=== PATIENT | male | born 1995 | race African-American/Black ===

== ENCOUNTER 2020-08-26 11:06 | Inpatient (IN) | payer OTHER ==
--- OUTSIDE RECORDS SUMMARY | 2020-08-26 11:11 | XMS ---
:1995 Author Organization [facility] Care Team Providers Name Role Phone Braden Champagne MD Unavailable Unavailable Cyndie Murphy MD Unavailable Unavailable Esperanza Maharaj MD Unavailable Unavailable Adolfo Orr DO Unavailable Unavailable Vincent Fernandes MD Unavailable Unavailable Bernardino Loomis PA-C Unavailable Unavailable April Stephen MD Unavailable April Stephen MD Unavailable April Stephen MD Unavailable Re-disclosure Warning The records that you are about to access may contain information from federally- assisted alcohol or drug abuse programs. If such information is present, then the following federally mandated warning applies: This information has been disclosed to you from records protected by federal confidentiality rules (42 CFR part 2). The federal rules prohibit you from making any further disclosure of this information unless further disclosure is expressly permitted by the written consent of the person to whom it pertains or as otherwise permitted by 42 CFR part 2. A general authorization for the release of medical or other information is NOT sufficient for this purpose. The Federal rules restrict any use of the information to criminally investigate or prosecute any alcohol or drug abuse patient.The records that you are about to access may contain highly sensitive health information, the redisclosure of which is protected by Article 27-F of the [facility] Public Health law. If you continue you may haveaccess to information: Regarding HIV / AIDS; Provided by facilities licensed or operated by the [facility] Office of Mental Health; or Provided by the [facility] Office for People With Developmental Disabilities. If such information is present, then the following [facility] mandated warning applies: This information has been disclosed to you from confidential records which are protected by state law. State law prohibits you from making any further disclosure of this information without the specific written consent of the person to whom it pertains, or as otherwise permitted by law. Any unauthorized further disclosure in violation of state law may result in a fine or mcc sentence or both. A general authorization for the release of medical or other information is NOT sufficient authorization for further disclosure. Allergies and Adverse Reactions Type Description Substance Reaction Status Data Source(s ) Drug allergy No Known Allergies No Known NO KNOWN ALLERG [facility] Allergies Hospital Encounters Encounter Providers Location Date Indications Data Source(s ) Inpatient Attender: Braden 07/22/2020 SEIZURES [place] [facility] [place] 06:21:00 PM Hospital MDAttender: Esperanza Maharaj EDT - MDAttender: Yue 07/28/2020 [place] MDAttender: 11:30:00 AM Adolfo Orr EDT DOAttender: Vincent Fernnades MDAttender: Bernardino Gutierrezdmitter: Adolfo Orr DOConsultant: Cyndie Murphy MD SEIZURES Patient discharged. Functional Status Medications Medication Brand Start Product Dose Route Administrative Pharmacy [facility] Indications Reaction Description Data Name Date Form Instructions Instructions Source(s) Multivitami 07/26/ TABLET 1 ORAL active Wh ite ns 2020 {Caps [place] 08:56: ule} Hospital 00 AM EDT Folic Acid 07/26/ TABLET 1 mg ORAL active Whi te Tablet* 2020 [place] 08:56: Hospital 00 AM EDT Thiamine 10/ TABLET 100 ORAL active [facility] Mononitrate 2020 mg [place] 08:56: Hospital 00 AM EDT Divalproex 07/26/ ENTERIC 750 ORAL active Wh ite Sodium 2020 COATED mg [place] 08:56: TABLET Hospital 00 AM EDT Insurance Providers Payer name Policy type Policy ID Covered Covered constitution party's Policy P saeed / Coverage constitution party ID relationship to [place] Inf ormation type scott [facility] MEDICAID [id number] SP [id number] [facility] MEDICAID [id number] SP [id number] [facility] [id number] PT [id number] [facility] [id number] PT [id number] PLAN MEDICAID [id number] PT [id number] JZANUS SELF PAY PT INSURANCE Problems, Conditions, and Diagnoses Code Display Name Description Problem Type Effective Dates Data Source(s) Y92.[address] in Y92.009 Diagnosis 07/22/2020 [place] unspecified 11:38:00 PM EDT Hospital non-institutional (private) residence as the place of occurrence of the external cause T40.7X1A Poisoning by cannabis T40.7X1A Diagnosis 07/22/2020 [facility] [place] (derivatives), 11:38:00 PM EDT Hospi [place] accidental (unintentional), initial encounter T42.4X1A Poisoning by T42.4X1A Diagnosis 07/22/2020 [facility] benzodiazepines, 11:38:00 PM EDT Hos pital accidental (unintentional), initial encounter G92 Toxic encephalopathy G92 Diagnosis 07/22/2020 [place] 11:38:00 PM EDT Hospital E16.2 Hypoglycemia, E16.2 Diagnosis 07/22/2020 [place] unspecified 11:38:00 PM EDT Hospital F32.9 Major depressive F32.9 Diagnosis 07/22/[address] [place] disorder, single 11:38:00 PM EDT Hos pital episode, unspecified G40.909 Epilepsy, G40.909 Diagnosis 07/22/2020 [facility] unspecified, not 11:38:00 PM EDT Hos pital intractable, without status epilepticus F12.20 Cannabis dependence, F12.20 Diagnosis 07/22/2020 [place] uncomplicated 11:38:00 PM EDT Hospit al F14.20 Cocaine dependence, F14.20 Diagnosis 07/22/2020 [facility] uncomplicated 11:38:00 PM EDT Hospit al 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, 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 [facility] [facility] [place] anxiolytic dependence 11:38:00 PM ED T Hospital with withdrawal delirium T40.5X1A Poisoning by cocaine, T40.5X1A Diagnosis 07/22/2020 [facility] [place] accidental 11:38:00 PM EDT Hospital (unintentional), initial encounter Surgeries/Procedures Procedure Description Date Indications Data Source(s) Veeg Ea 12-26HR Intmt Mntr 07/24/2020 [place] 12:00:00 AM Hospital EDT Veeg Ea 12-26HR Intva Mntr 07/23/2020 [place] 12:00:00 AM Hospital EDT Electrocardiographic procedure 07/22/2020 [facility] (procedure) 12:00:00 AM Hospital EDT Eeg Cont Rec W/Vid Independent Driver 07/22/2020 [facility] 12:00:00 AM Hospital EDT Plain chest X-ray (procedure) 07/22/2020 [facility] 12:00:00 AM Hospital EDT Computed tomography of head 07/22/2020 [facility] without contrast 12:00:00 AM Hospital EDT Electrocardiographic procedure 07/22/2020 [facility] (procedure) 12:00:00 AM Hospital EDT Results ID Date Data Source [id number] 08/22/2020 05:00:00 PM EST [facility] Name Value Range Interpretation Code Description Data Carmela rce(s) Supporting Document(s ) SARS COV-2 [facility] RT-PCR This lab was ordered by [facility] and reported by [facility]. ID Date Data Source [id number] 07/28/2020 06:39:00 AM EDT [facility] Name Value Range Interpretation Description Data Sup porting Code Source(s) Document(s ) Valproate 106.4 [facility] [Mass/volume] ug/mL Hospital in Serum or Plasma ID Date Data Source [id number] 07/28/2020 06:34:00 AM EDT [facility] Nanotechnology Engineering Technician:ELSY HDEZ Name Value Range Interpretation Description Data Sup porting Code Source(s) Document(s ) Glucose 98 mg/dL [facility] [Mass/volume] Hospital in Capillary blood by Glucometer ID Date Data Source [id number] 07/23/2020 06:33:00 AM EDT [facility] Name Value Range Interpretation Description Data Sup porting Code Source(s) Document(s ) Phosphate 3.7 mg/dL [facility] [Mass/volume] Hospital in Serum or Plasma ID Date Data Source [id number] 07/23/2020 06:33:00 AM EDT [facility] Name Value Range Interpretation Description Data Sup porting Code Source(s) Document(s ) Magnesium 1.9 mg/dL [facility] [Mass/volume] Hospital in Serum or Plasma ID Date Data Source [id number] 07/23/2020 06:33:00 AM EDT [facility] Name Value Range Interpretation Description Data Sup porting Code Source(s) Document(s ) Aspartate 25 U/L [facility] aminotransferase [place] [Enzymatic Hospital activity/volume] in Serum or Plasma ID Date Data Source [id number] 07/23/2020 06:33:00 AM EDT [facility] Name Value Range Interpretation Description Data Sup porting Code Source(s) Document(s ) Alanine 16 U/L [facility] aminotransferase [place] [Enzymatic Hospital activity/volume] in Serum or Plasma ID Date Data Source [id number] 07/23/2020 06:33:00 AM EDT [facility] Name Value Range Interpretation Description Data Sup porting Code Source(s) Document(s ) Alkaline 45 U/L [facility] phosphatase Hospital [Enzymatic activity/volume ] in Serum or Plasma ID Date Data Source [id number] 07/23/2020 06:33:00 AM EDT [facility] Name Value Range Interpretation Description Data Sup porting Code Source(s) Document(s ) Bilirubin.t 0.8 mg/dL [facility] [Mass/volum e] in Serum or Plasma ID Date Data Source [id number] 07/23/2020 06:33:00 AM EDT [facility] Name Value Range Interpretation Code Description Data Carmela rce(s) Supporting Document(s ) Albumin/Glob 1.6 [facility] ulin [Mass Hospital Ratio] in Serum or Plasma ID Date Data Source [id number] 07/23/2020 06:33:00 AM EDT [facility] Name Value Range Interpretation Description Data Sup porting Code Source(s) Document(s ) Albumin 3.6 g/dL [facility] [Mass/volume Hospital ] in Serum or Plasma ID Date Data Source [id number] 07/23/2020 06:33:00 AM EDT [facility] Name Value Range Interpretation Description Data Sup porting Code Source(s) Document(s ) Protein 5.8 g/dL [facility] [Mass/volume Hospital ] in Serum or Plasma ID Date Data Source [id number] 07/23/2020 06:33:00 AM EDT [facility] Name Value Range Interpretation Description Data Sup porting Code Source(s) Document(s ) Calcium 8.1 mg/dL [facility] [Mass/volume Hospital ] in Serum or Plasma ID Date Data Source [id number] 07/23/2020 06:33:00 AM EDT [facility] Name Value Range Interpretation Code Description Data Carmela rce(s) Supporting Document(s ) Urea 8.9 [facility] nitrogen/Cre Hospital atinine [Mass Ratio] in Serum or Plasma ID Date Data Source [id number] 07/23/2020 06:33:00 AM EDT [facility] Name Value Range Interpretation Description Data Sup porting Code Source(s) Document(s ) Creatinine 0.9 mg/dL [facility] [Mass/volume] Hospital in Serum or Plasma ID Date Data Source [id number] 07/23/2020 06:33:00 AM EDT [facility] Name Value Range Interpretation Description Data Sup porting Code Source(s) Document(s ) Urea nitrogen 8 mg/dL [facility] [Mass/volume] Hospital in Serum or Plasma ID Date Data Source [id number] 07/23/2020 06:33:00 AM EDT [facility] Name Value Range Interpretation Code Description Data Carmela rce(s) Supporting Document(s ) Anion gap in 11 [facility] Serum or Hospital Plasma ID Date Data Source [id number] 07/23/2020 06:33:00 AM EDT [facility] Name Value Range Interpretation Description Data Sup porting Code Source(s) Document(s ) Carbon 25 mmol/L [facility] dioxide, Hospital total [Moles/volu me] in Serum or Plasma ID Date Data Source [id number] 07/23/2020 06:33:00 AM EDT [facility] Name Value Range Interpretation Description Data Sup porting Code Source(s) Document(s ) Chloride 109 [facility] [Moles/volum mmol/L Hospital e] in Serum or Plasma ID Date Data Source [id number] 07/23/2020 06:33:00 AM EDT [facility] Value Range Interpretation Description Data Sup porting Code Source(s) Document(s ) Potassium 3.9 [facility] [Moles/volume mmol/L Hospital ] in Serum or Plasma ID Date Data Source [id number] 07/23/2020 06:33:00 AM EDT [facility] Name Value Range Interpretation Description Data Sup porting Code Source(s) Document(s ) Sodium 141 mmol/L [facility] [Moles/volu Hospital me] in Serum or Plasma ID Date Data Source [id number] 07/23/2020 06:33:00 AM EDT [facility] Name Value Range Interpretation Description Data Sup porting Code Source(s) Document(s ) Glucose 82 mg/dL [facility] [Mass/volume Hospital ] in Serum or Plasma ID Date Data Source [id number] 07/23/2020 06:33:00 AM EDT [facility] Value Range Interpretation Code Description Data Supporting Source(s) Document(s ) NUCLEATED RBCS 0.0 % [facility] (AUTO Hospital DIFF%)DIS ID Date Data Source [id number] 07/23/2020 06:33:00 AM EDT [facility] Name Value Range Interpretation Description Data Sup porting Code Source(s) Document(s ) Differential AUTOMATED [facility] cell count Hospital method - Blood ID Date Data Source [id number] 07/23/2020 06:33:00 AM EDT [facility] Name Value Range Interpretation Description Data Sup porting Code Source(s) Document(s ) Immature 0.04 [facility] granulocytes 10*3/uL Hospital [#/volume] in Blood by Automated count ID Date Data Source [id number] 07/23/2020 06:33:00 AM EDT [facility] Name Value Range Interpretation Description Data Sup porting Code Source(s) Document(s ) Basophils 0.02 [facility] [#/volume] in 10*3/uL [facility] Blood by Automated count ID Date Data Source [id number] 07/23/2020 06:33:00 AM EDT [facility] Name Value Range Interpretation Description Data Sup porting Code Source(s) Document(s ) Eosinophils 0.11 [facility] [#/volume] in 10*3/uL [facility] Blood by Automated count ID Date Data Source [id number] 07/23/2020 06:33:00 AM EDT [facility] Name Value Range Interpretation Description Data Sup porting Code Source(s) Document(s ) Monocytes 0.83 [facility] [#/volume] in 10*3/uL Hospital Blood by Automated count ID Date Data Source [id number] 07/23/2020 06:33:00 AM EDT [facility] Name Value Range Interpretation Description Data Sup porting Code Source(s) Document(s ) Lymphocytes 2.35 [facility] [#/volume] in 10*3/uL Hospital Blood by Automated count ID Date Data Source [id number] 07/[facility] Description Data Sup porting Code Source(s) Document(s ) Neutrophils 4.36 [facility] [#/volume] in 10*3/uL Hospital Blood by Automated count ID Date Data Source [id number] 07/23/2020 06:33:00 AM EDT [facility] Value Range Interpretation Description Data Sup porting Code Source(s) Document(s ) Nucleated 0.0 % [facility] erythrocytes/10 Hospital 0 leukocytes [Ratio] in Blood by Automated count ID Date Data Source [id number] 07/23/2020 06:33:00 AM [facility] Value Range Interpretation Description Data Sup porting Code Source(s) Document(s ) Immature 0.5 % [facility] granulocytes/10 Hospital 0 leukocytes in Blood by Automated count ID Date Data Source [id number] 07/23/2020 [facility] Description Data Sup porting Code Source(s) Document(s ) Basophils/100 0.3 % [facility] leukocytes in [facility] Blood by Automated count ID Date Data Source [id number] 07/23/[facility] Interpretation Description Data Sup porting Code Source(s) Document(s ) Eosinophils/100 1.4 % [facility] leukocytes in Hospital Blood by Automated count ID Date Data Source [id number] 07/23/2020 06:33:00 AM [facility] Value Range Interpretation Description Data Sup porting Code Source(s) Document(s ) Monocytes/100 10.8 % [facility] leukocytes in [facility] Blood by Automated count ID Date Data Source [id number] 07/23[facility] Interpretation Description Data Sup porting Code Source(s) Document(s ) Lymphocytes/10 30.5 % [facility] 0 leukocytes Hospital in Blood by Automated count ID Date Data Source [id number] 07/23/2020 06:33:00 AM EDT [facility] Name Value Range Interpretation Description Data Sup porting Code Source(s) Document(s ) Neutrophils/10 56.5 % [facility] 0 leukocytes Hospital in Blood by Automated count ID Date Data Source [id number] 07/23/2020 06:33:00 AM EDT [facility] Value Range Interpretation Description Data Sup porting Code Source(s) Document(s ) Platelet mean 11.2 fL [facility] volume Hospital [Entitic volume] in Blood by Automated count ID Date Data Source [id number] 07/23/2020 06:33:00 AM EDT [facility] Value Range Interpretation Description Data Sup porting Code Source(s) Document(s ) Platelets 257 [facility] [#/volume] in 10*3/uL Hospital Blood by Automated count ID Date Data Source [id number] 07/23/2020 06:33:00 AM EDT [facility] Value Range Interpretation Description Data Sup porting Code Source(s) Document(s ) Erythrocyte 12.1 % [facility] distribution Hospital width [Ratio] by Automated count ID Date Data Source [id number] 07/23/2020 06:33:00 AM EDT [facility] Value Range Interpretation Description Data Sup porting Code Source(s) Document(s ) Erythrocyte mean 32.5 [facility] corpuscular g/dL Hospital hemoglobin concentration [Mass/volume] by Automated count ID Date Data Source [id number] 07/23/2020 06:33:00 AM EDT [facility] Value Range Interpretation Description Data Sup porting Code Source(s) Document(s ) Erythrocyte 31.3 pg [facility] mean Hospital corpuscular hemoglobin [Entitic mass] by Automated count ID Date Data Source [id number] 07/23/2020 06:33:00 AM EDT [facility] Name Value Range Interpretation Description Data Sup porting Code Source(s) Document(s ) Erythrocyte 96.3 fL [facility] mean Hospital corpuscular volume [Entitic volume] by Automated count ID Date Data Source [id number] 07/23/2020 06:33:00 AM EDT [facility] Value Range Interpretation Description Data Sup porting Code Source(s) Document(s ) Hematocrit 41.9 % [facility] [Volume Hospital Fraction] of Blood by Automated count ID Date Data Source [id number] 07/23/2020 06:33:00 AM EDT [facility] Value Range Interpretation Description Data Sup porting Code Source(s) Document(s ) Hemoglobin 13.6 g/dL [facility] [Mass/volume] Hospital in Blood ID Date Data Source [id number] 07/23/2020 06:33:00 AM EDT [facility] Value Range Interpretation Description Data Sup porting Code Source(s) Document(s ) Erythrocytes 4.35 [facility] [#/volume] in 10*6/uL Hospital Blood by Automated count ID Date Data Source [id number] 07/23/2020 06:33:00 AM EDT [facility] Value Range Interpretation Description Data Sup porting Code Source(s) Document(s ) Leukocytes 7.7 [facility] [#/volume] in 10*3/uL Hospital Blood by Automated count ID Date Data Source [id number] 07/23/2020 02:21:00 AM EDT [facility] Value Range Interpretation Description Data Sup porting Code Source(s) Document(s ) Lactate 0.5 [facility] [Moles/volum mmol/L Hospital e] in Serum or Plasma ID Date Data Source [id number] 07/22/2020 10:16:00 PM EDT [facility] CUT-OFF >= 25 NG/ML.THE FINDINGS OF THE URINE DRUG SCREEN ARE USED SOLELY FOR PATIENT MANAGEMENT AND GUIDANCE. THE RESULTS NGOZI ULD NOT BE USED FOR FORENSIC PURPOSE. ANY CLINICALLY UNSUSPECTED POSITIVE DRUG SCR EEN CAN BE CONFIRMED BY CALLING THE LABORATORY 3 DAYS WITHIN RECEIPT OF REPO RT. Name Value Range Interpretation Code Description Data Carmela rce(s) Supporting Document(s ) PCP (UR) NEGATIVE [facility] ID Date Data Source [id number] 07/22/2020 10:16:00 PM EDT [facility] CUT-OFF >= 50 NG/ML. Name Value Range Interpretation Code Description Data Carmela rce(s) Supporting Document(s ) THC (UR) POSITIVE [facility] ID Date Data Source [id number] 07/22/2020 10:16:00 PM EDT [facility] CUT-OFF >= 300 NG/ML. Name Value Range Interpretation Description Data Sup porting Code Source(s) Document(s ) OPIATES (UR) NEGATIVE [facility] ID Date Data Source [id number] 07/22/2020 10:16:00 PM EDT [facility] CUT-OFF >= 300 NG/ML. Name Value Range Interpretation Description Data Sup porting Code Source(s) Document(s ) COCAINE (UR) POSITIVE [facility] ID Date Data Source [id number] 07/22/2020 10:16:00 PM EDT [facility] CUT-OFF >= 200 NG/ML. Name Value Range Interpretation Description Data Sup porting Code Source(s) Document(s ) BENZODIAZEPINES POSITIVE [place] (UR) [place] [facility] ID Date Data Source [id number] 07/22/2020 10:16:00 PM [facility] CUT-OFF >= 200 NG/ML. Name Value Range Interpretation Description Data Sup porting Code Source(s) Document(s ) BARBITURATES NEGATIVE [facility] (UR) Hospital ID Date Data Source [id number] 07/22/2020 10:16:00 PM [facility] CUT-OFF >= 1000 NG/ML. Name Value Range Interpretation Description Data Sup porting Code Source(s) Document(s ) AMPHETAMINES NEGATIVE [facility] (UR) Hospital ID Date Data Source [id number] 07/22/2020 10:16:00 PM [facility] Name Value Range Interpretation Description Data Sup porting Code Source(s) Document(s ) Erythrocytes 0-3 [facility] [#/area] in /[HPF] Hospital Urine sediment by Automated count ID Date Data Source [id number] 07/22/2020 10:16:00 PM [facility] Name Value Range Interpretation Description Data Sup porting Code Source(s) Document(s ) Leukocytes 0-3 [facility] [#/area] in /[HPF] Hospital Urine sediment by Automated count ID Date Data Source [id number] 07/22/2020 10:16:00 PM [facility] Name Value Range Interpretation Description Data Sup porting Code Source(s) Document(s ) Leukocyte NEGATIVE [facility] esterase Hospital [Presence] in Urine by Test strip ID Date Data Source [id number] 07/22/2020 10:16:00 PM [facility] Name Value Range Interpretation Description Data Sup porting Code Source(s) Document(s ) URINE NEGATIVE [facility] NITRITES Hospital ID Date Data Source [id number] 07/22/2020 10:16:00 PM [facility] Name Value Range Interpretation Description Data Sup porting Code Source(s) Document(s ) Erythrocytes NEGATIVE [facility] [#/volume] in Hospital Urine by Test strip ID Date Data Source [id number] 07/22/2020 10:16:00 PM EDT [facility] Name Value Range Interpretation Code Description Data Carmela rce(s) Supporting Document(s ) Bilirubin. NEGATIVE [facility] total Hospital [Presence] in Urine by Test strip ID Date Data Source [id number] 07/22/2020 10:16:00 PM EDT [facility] Name Value Range Interpretation Description Data Sup porting Code Source(s) Document(s ) Urobilinogen 1.0 [facility] [Units/volume] mg/dL Hospital in Urine by Test strip ID Date Data Source [id number] 07/22/2020 10:16:00 PM EDT [facility] Name Value Range Interpretation Description Data Sup porting Code Source(s) Document(s ) Ketones NEGATIVE [facility] [Mass/volume Hospital ] in Urine by Test strip ID Date Data Source [id number] 07/22/2020 10:16:00 PM EDT [facility] Name Value Range Interpretation Description Data Sup porting Code Source(s) Document(s ) Glucose NEGATIVE [facility] ] in Urine by Test strip ID Date Data Source [id number] 07/22/2020 10:16:00 PM EDT [facility] Name Value Range Interpretation Code Description Data Carmela rce(s) Supporting Document(s ) Protein 1+ [facility] in Urine by Test strip ID Date Data Source [id number] 07/22/2020 10:16:00 PM EDT [facility] Name Value Range Interpretation Code Description Data Carmela rce(s) Supporting Document(s ) pH of Urine 6.0 [facility] by Test Hospital strip ID Date Data Source [id number] 07/22/2020 10:16:00 PM [facility] Name Value Range Interpretation Code Description Data Supporting Source(s) Document(s ) Specific 1.017 [facility] gravity of Hospital Urine by Test strip ID Date Data Source [id number] 07/22/2020 10:16:00 PM [facility] Name Value Range Interpretation Description Data Sup porting Code Source(s) Document(s ) Clarity in Urine CLEAR [facility] by Refractometry Hospital automated ID Date Data Source [id number] 07/22/2020 10:16:00 PM [facility] Name Value Range Interpretation Code Description Data Carmela rce(s) Supporting Document(s ) Color of YELLOW [facility] Urine Hospital ID Date Data Source [id number] 07/22/2020 07:55:00 PM [facility] Name Value Range Interpretation Description Data Sup porting Code Source(s) Document(s ) Thyrotropin 1.083 [facility] [Units/volume] u[IU]/mL Hospital in Serum or Plasma by Detection limit <= 0.005 mIU/L ID Date Data Source [id number] 07/22/2020 07:55:00 PM [facility] Name Value Range Interpretation Description Data Sup porting Code Source(s) Document(s ) OSMOLALITY 288 [facility] (SERUM) mosm/kg Hospital ID Date Data Source [id number] 07/22/2020 07:15:00 PM [facility] REFERENCE RANGES: NONE DETECTED <20 MG/DL NONE TO MILD EUPHORIA 20-49 MG/DL MILD EUPHORIA 50-99 MG/DL MODERATE EUPHORIA 100-149 MG/DL INTOXICATION 150-300 MG/DL Name Value Range Interpretation Description Data Sup porting Code Source(s) Document(s ) Ethanol < 20 [facility] [[facility]/volume mg/dL Hospital ] in Serum or Plasma ID Date Data Source [id number] 07/22/2020 07:15:00 PM [facility] TEST RESULT IS A TOTAL TRICYCLIC VALUE.T RICYCLIC ANTIDEPRESSANT REFERENCE RANGE: AMITRIPTYLINE AND METABOLITE (NORTRIPTYL INE) TOTAL THERAPEUTIC: 75 - 225 NG/ML. TOTAL TOXIC: > 400 NG/ML. NORTRIPTYLINE ONLY TOTAL THERAPEUTIC: 50 - 150 NG/ML. TOTAL TOXIC: > 400 NG/ML. IMIPRAMINE AND METABOLITE (DESIPRAMINE) TOTAL THERAPEUTIC: 125 - 175 NG/ML. TOTAL TOXIC: > 400 NG/ML. Name Value Range Interpretation Description Data Sup porting Code Source(s) Document(s ) TRICYCLIC < 80 [facility] ANTIDEPRESSANT ng/mL Hospital ID Date Data Source [id number] 07/22/2020 07:15:00 PM [facility] REFERENCE RANGES: ANALGESIC: 0.0 - 10.0 MG/DL. ARTHRITIC THERAPY: 15.0 - 30.0 MG/DL. Name Value Range Interpretation Description Data Sup porting Code Source(s) Document(s ) Salicylates < 3.0 [facility] [Mass/volume] mg/dL Hospital in Serum or Plasma ID Date Data Source [id number] 07/22/2020 07:15:00 PM [facility] THERAPEUTIC RANGE: 10.0-30.0 UG/MLTOXIC RANGE: 4 HRS AFTER INGESTION >150 UG/ML 12 HRS AFTER INGESTION >35 UG/ML Name Value Range Interpretation Description Data Sup porting Code Source(s) Document(s ) ACETAMINOPHEN < 10.0 [facility] ug/mL Hospital ID Date Data Source [id number] 07/22/2020 07:15:00 PM [facility] TEST PERFORMED BY [facility] [employer]ENS[facility] CHEMILUMINESCENCE METHOD. Name Value Range Interpretation Description Data Sup porting Code Source(s) Document(s ) Troponin < 0.01 [facility] I.cardiac ng/mL Hospital [Mass/volume ] in Serum or Plasma ID Date Data Source [id number] 07/22/2020 07:15:00 PM EDT [facility] Name Value Range Interpretation Code Description Data Carmela rce(s) Supporting Document(s ) Lipase 22 U/L [facility] [Enzymatic Hospital activity/vo lume] in Serum or Plasma ID Date Data Source [id number] 07/22/2020 07:15:00 PM EDT [facility] THERAPEUTIC RANGES:UNFRACTIONATED HEPARI N THERAPY: 60-90 SECONDSARGATROBAN THERAPY: 49-99 SECONDS Name Value Range Interpretation Description Data Sup porting Code Source(s) Document(s ) aPTT in 26.5 s [facility] Platelet poor [facility] plasma by Coagulation assay ID Date Data Source [id number] 07/22/2020 07:15:00 PM EDT [facility] THERAPEUTIC RANGE FOR STANDARD ORALANTIC OAGULANT THERAPY: 2.0-3.0THERAPEUTIC RANGE FOR HIGH DOSE ORALANTICOAGULANT THERAPY (MECHANICAL HEARTVALVE REPLACEMENT): 2.5-3.5 Name Value Range Interpretation Description Data Sup porting Code Source(s) Document(s ) INR in Platelet 1.0 [facility] poor plasma by Hospital Coagulation assay ID Date Data Source [id number] 07/22/2020 07:15:00 PM EDT [facility] Name Value Range Interpretation Description Data Sup porting Code Source(s) Document(s ) PT panel - 11.3 s [facility] Platelet poor [facility] plasma by Coagulation assay Procedure Social History Code Duration Value Status Description Data Source(s ) Smoking 07/23/2020 Smokes tobacco completed Smokes tobacco [facility] 01:00:00 AM EDT daily (finding) daily (finding) Hospital Vital Signs ID Date Data Source UNK Name Value Range Interpretation Code Description Data Source(s) Diastolic blood 72 mm[Hg] 72 mm[Hg] [facility] Systolic blood 115 mm[Hg] 115 mm[Hg] [facility] Respiratory rate 17 /min 17 /min [facility] Heart rate 54 /min 54 /min [facility] Body temperature 36.28325 36.43907 [facility] Body temperature 97.9 [degF] 97.9 [degF] [facility] Body mass index 22.0 kg/m2 22.0 kg/m2 [facility] ins (BMI) [Ratio] Hospital Body weight 140.30 140.30 [lb_av] [facility] ins [lb_av] Hospital
--- OUTSIDE RECORDS SUMMARY | 2020-08-26 11:12 | XMS ---
:1995 Author Organization [facility] Care Team Providers Name Role Phone [...] is protected by Article 27-F of the [facility] Public Health law. If you continue you may haveaccess to information: Regarding HIV / AIDS; Provided by facilities licensed or operated by the [facility] Office of Mental Health; or Provided by the [facility] Office for People With Developmental Disabilities. If such information is present, then the following [facility] mandated warning applies: This information has been [...] law may result in a fine or custodial sentence or both. A general authorization for the release of medical or other information is NOT sufficient authorization for further disclosure. Allergies and Adverse Reactions Type Description Substance Reaction Status Data Source(s ) Drug allergy No Known Allergies No Known NO KNOWN ALLERG [place] Allergies Hospital Encounters Encounter Providers Location Date Indications Data Source(s ) Inpatient Attender: Braden 07/22/2020 SEIZURES [place] 06:21:00 PM Hospital MDAttender: Esperanza Maharaj EDT - MDAttender: Yue 07/28/2020 [place] MDAttender: 11:30:00 AM Adolfo Orr EDT DOAttender: Vincent Fernandes MDAttender: Bernardino Gutierrezdmitter: Adolfo Orr DOConsultant: Cyndie Murphy MD SEIZURES Patient discharged. Functional Status Medications Medication Brand Start Product Dose Route Administrative Pharmacy [facility] Indications Reaction Description Data Name Date Form Instructions Instructions Source(s) Multivitami 07/26/ TABLET 1 ORAL active Wh ite ns 2020 {Caps [place] 08:56: ule} Hospital 00 AM EDT Folic Acid 07/26/ TABLET 1 mg ORAL active Whi te Tablet* 2020 [place] 08:56: Hospital 00 AM EDT Thiamine 10/ TABLET 100 ORAL active [place] Mononitrate 2020 mg [place] 08:56: Hospital 00 AM EDT Divalproex 07/26/ ENTERIC 750 ORAL active Wh ite Sodium 2020 COATED mg [place] 08:56: TABLET Hospital 00 AM EDT Insurance Providers Payer name Policy type Policy ID Covered Covered democrat's Policy P saeed / Coverage democrat ID relationship to [facility] ormation type [facility] [place]ICA[place] [id number] [place] [id number] [facility] MEDICAID [id number] [place] [id number] [facility] [id number] PT [id number] [facility] [id number] PT [id number] PLAN MEDICAID [id number] PT [id number] JZANUS SELF PAY PT INSURANCE Problems, Conditions, and Diagnoses Code Display Name Description Problem Type Effective Dates Data Source(s) Y92.[address] in Y92.009 Diagnosis 07/22/2020 Whit e [place] unspecified 11:38:00 PM EDT Hospital non-institutional (private) residence as the place of occurrence of the external cause T40.7X1A Poisoning by cannabis T40.7X1A Diagnosis 07/22/2020 [facility]i te [place] (derivatives), 11:38:00 PM EDT Hospi [place] accidental (unintentional), initial encounter T42.4X1A Poisoning by T42.4X1A Diagnosis 07/22/2020 [place] benzodiazepines, 11:38:00 PM EDT Hos pital accidental (unintentional), initial encounter G92 Toxic encephalopathy G92 Diagnosis 07/22/2020 [facility] e [place] 11:38:00 PM EDT Hospital E16.2 Hypoglycemia, E16.2 Diagnosis 07/22/2020 [place] unspecified 11:38:00 PM EDT Hospital F32.9 Major depressive F32.9 Diagnosis 07/22/[address] [place] disorder, single 11:38:00 PM EDT Hos pital episode, unspecified G40.909 Epilepsy, G40.909 Diagnosis 07/22/2020 [place] unspecified, not 11:38:00 PM EDT Hos pital intractable, without status epilepticus F12.20 Cannabis dependence, F12.20 Diagnosis 07/22/2020 [place] uncomplicated 11:38:00 PM EDT Hospit al F14.20 Cocaine dependence, F14.20 Diagnosis 07/22/2020 [place] uncomplicated 11:38:00 PM EDT Hospit al 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, 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 11:38:00 PM ED T Hospital with withdrawal delirium T40.5X1A Poisoning by cocaine, T40.5X1A Diagnosis 07/22/2020 [facility]i te [place] accidental 11:38:00 PM EDT Hospital (unintentional), initial encounter Surgeries/Procedures Procedure Description Date Indications Data Source(s) Veeg Ea 12-26HR Intmt Mntr 07/24/2020 W óscar [place] 12:00:00 AM Hospital EDT Veeg Ea 12-26HR Intvt Mntr 07/23/2020 W óscar [place] 12:00:00 AM Hospital EDT Electrocardiographic procedure 07/22/2020 [place] (procedure) 12:00:00 AM Hospital EDT Eeg Cont Rec W/[employer] Usher 07/22/2020 [place] 12:00:00 AM Hospital EDT Plain chest X-ray (procedure) 07/22/2020 [place] 12:00:00 AM Hospital EDT Computed tomography of head 07/22/2020 [place] without contrast 12:00:00 AM Hospital EDT Electrocardiographic procedure 07/22/2020 [place] (procedure) 12:00:00 AM Hospital EDT Results ID Date Data Source [id number] 08/22/2020 05:00:00 PM EST [facility] Name Value Range Interpretation Code Description Data Carmela rce(s) Supporting Document(s ) SARS COV-2 [facility] RT-PCR This lab was ordered by [facility] and reported by [facility]. ID Date Data Source [id number] 07/28/2020 06:39:00 AM EDT [facility] Name Value Range Interpretation Description Data Sup porting Code Source(s) Document(s ) Valproate 106.4 [place] [Mass/volume] ug/mL Hospital in Serum or Plasma ID Date Data Source [id number] 07/28/2020 06:34:00 AM EDT [facility] Criminal Justice Instructor:ELSY HDEZ Name Value Range Interpretation Description Data Sup porting Code Source(s) Document(s ) Glucose 98 mg/dL [place] [Mass/volume] Hospital in Capillary blood by Glucometer ID Date Data Source [id number] 07/23/2020 06:33:00 AM EDT [facility] Name Value Range Interpretation Description Data Sup porting Code Source(s) Document(s ) Phosphate 3.7 mg/dL [place] [Mass/volume] Hospital in Serum or Plasma ID Date Data Source [id number] 07/23/2020 06:33:00 AM EDT [place] [facility] Name Value Range Interpretation Description Data Sup porting Code Source(s) Document(s ) Magnesium 1.9 mg/dL [place] [Mass/volume] Hospital in Serum or Plasma ID Date Data Source [id number] 07/23/2020 06:33:00 AM EDT [facility] Name Value Range Interpretation Description Data Sup porting Code Source(s) Document(s ) Aspartate 25 U/L [place] aminotransferase [place] [Enzymatic Hospital activity/volume] in Serum or Plasma ID Date Data Source [id number] 07/23/2020 06:33:00 AM EDT [facility] Name Value Range Interpretation Description Data Sup porting Code Source(s) Document(s ) Alanine 16 U/L [place] aminotransferase [place] [Enzymatic Hospital activity/volume] in Serum or Plasma ID Date Data Source [id number] 07/23/2020 06:33:00 AM EDT [facility] Name Value Range Interpretation Description Data Sup porting Code Source(s) Document(s ) Alkaline 45 U/L [place] phosphatase Hospital [Enzymatic activity/volume ] in Serum or Plasma ID Date Data Source [id number] 07/23/2020 06:33:00 AM EDT [facility] Name Value Range Interpretation Description Data Sup porting Code Source(s) Document(s ) Bilirubin.t 0.8 mg/dL [facility] [Mass/volum e] in Serum or Plasma ID Date Data Source [id number] 07/23/2020 06:33:00 AM EDT [facility] Name Value Range Interpretation Code Description Data Carmela rce(s) Supporting Document(s ) Albumin/Glob 1.6 [place] ulin [Mass Hospital Ratio] in Serum or Plasma ID Date Data Source [id number] 07/23/2020 06:33:00 AM EDT [facility] Name Value Range Interpretation Description Data Sup porting Code Source(s) Document(s ) Albumin 3.6 g/dL [place] [Mass/volume Hospital ] in Serum or Plasma ID Date Data Source [id number] 07/23/2020 06:33:00 AM EDT [facility] Name Value Range Interpretation Description Data Sup porting Code Source(s) Document(s ) Protein 5.8 g/dL [place] [Mass/volume Hospital ] in Serum or Plasma ID Date Data Source [id number] 07/23/2020 06:33:00 AM EDT [facility] Name Value Range Interpretation Description Data Sup porting Code Source(s) Document(s ) Calcium 8.1 mg/dL [place] [Mass/volume Hospital ] in Serum or Plasma ID Date Data Source [id number] 07/23/2020 06:33:00 AM EDT [facility] Name Value Range Interpretation Code Description Data Carmela rce(s) Supporting Document(s ) Urea 8.9 [place] nitrogen/Cre Hospital atinine [Mass Ratio] in Serum or Plasma ID Date Data Source [id number] 07/23/2020 06:33:00 AM EDT [facility] Name Value Range Interpretation Description Data Sup porting Code Source(s) Document(s ) Creatinine 0.9 mg/dL [place] [Mass/volume] Hospital in Serum or Plasma ID Date Data Source [id number] 07/23/2020 06:33:00 AM EDT [facility] Name Value Range Interpretation Description Data Sup porting Code Source(s) Document(s ) Urea nitrogen 8 mg/dL [place] [Mass/volume] Hospital in Serum or Plasma ID Date Data Source [id number] 07/23/2020 06:33:00 AM EDT [facility] Name Value Range Interpretation Code Description Data Carmela rce(s) Supporting Document(s ) Anion gap in 11 [place] Serum or Hospital Plasma ID Date Data Source [id number] 07/23/2020 06:33:00 AM EDT [facility] Name Value Range Interpretation Description Data Sup porting Code Source(s) Document(s ) Carbon 25 mmol/L [place] dioxide, Hospital total [Moles/volu me] in Serum or Plasma ID Date Data Source [id number] 07/23/2020 06:33:00 AM EDT [facility] Name Value Range Interpretation Description Data Sup porting Code Source(s) Document(s ) Chloride 109 [place] [Moles/volum mmol/L Hospital e] in Serum or Plasma ID Date Data Source [id number] 07/23/2020 06:33:00 AM EDT [facility] Value Range Interpretation Description Data Sup porting Code Source(s) Document(s ) Potassium 3.9 [place] [Moles/volume mmol/L Hospital ] in Serum or Plasma ID Date Data Source [id number] 07/23/2020 06:33:00 AM EDT [facility] Name Value Range Interpretation Description Data Sup porting Code Source(s) Document(s ) Sodium 141 mmol/L [place] [Moles/volu Hospital me] in Serum or Plasma ID Date Data Source [id number] 07/23/2020 06:33:00 AM EDT [facility] Name Value Range Interpretation Description Data Sup porting Code Source(s) Document(s ) Glucose 82 mg/dL [place] [Mass/volume Hospital ] in Serum or Plasma ID Date Data Source [id number] 07/23/2020 06:33:00 AM EDT [facility] Value Range Interpretation Code Description Data Supporting Source(s) Document(s ) NUCLEATED RBCS 0.0 % [place] (AUTO Hospital DIFF%)DIS ID Date Data Source [id number] 07/23/2020 06:33:00 AM EDT [facility] Name Value Range Interpretation Description Data Sup porting Code Source(s) Document(s ) Differential AUTOMATED [place] cell count Hospital method - Blood ID Date Data Source [id number] 07/23/2020 06:33:00 AM EDT [facility] Name Value Range Interpretation Description Data Sup porting Code Source(s) Document(s ) Immature 0.04 [place] granulocytes 10*3/uL Hospital [#/volume] in Blood by Automated count ID Date Data Source [id number] 07/23/2020 06:33:00 AM EDT [facility] Name Value Range Interpretation Description Data Sup porting Code Source(s) Document(s ) Basophils 0.02 [place] [#/volume] in 10*3/uL [facility] Blood by Automated count ID Date Data Source [id number] 07/23/2020 06:33:00 AM EDT [facility] Name Value Range Interpretation Description Data Sup porting Code Source(s) Document(s ) Eosinophils 0.11 [place] [#/volume] in 10*3/uL [facility] Blood by Automated count ID Date Data Source [id number] 07/23/2020 06:33:00 AM EDT [facility] Name Value Range Interpretation Description Data Sup porting Code Source(s) Document(s ) Monocytes 0.83 [place] [#/volume] in 10*3/uL Hospital Blood by Automated count ID Date Data Source [id number] 07/23/2020 06:33:00 AM EDT [facility] Name Value Range Interpretation Description Data Sup porting Code Source(s) Document(s ) Lymphocytes 2.35 [place] [#/volume] in 10*3/uL Hospital Blood by Automated count ID Date Data Source [id number] 07/23/[facility] Description Data Sup porting Code Source(s) Document(s ) Neutrophils 4.36 [place] [#/volume] in 10*3/uL Hospital Blood by Automated count ID Date Data Source [id number] 07/23/2020 06:33:00 AM EDT [facility] Value Range Interpretation Description Data Sup porting Code Source(s) Document(s ) Nucleated 0.0 % [place] erythrocytes/10 Hospital 0 leukocytes [Ratio] in Blood by Automated count ID Date Data Source [id number] 07/23/2020 06:33:[address] [facility] Value Range Interpretation Description Data Sup porting Code Source(s) Document(s ) Immature 0.5 % [place] granulocytes/10 Hospital 0 leukocytes in Blood by Automated count ID Date Data Source [id number] 07/23/2020 [facility] Value [facility] Interpretation Description Data Sup porting Code Source(s) Document(s ) Basophils/100 0.3 % [place] leukocytes in [facility] Blood by Automated count ID Date Data Source [id number] 07/23/2020 [facility] Value Range Interpretation Description Data Sup porting Code Source(s) Document(s ) Eosinophils/100 1.4 % [place] leukocytes in Hospital Blood by Automated count ID Date Data Source [id number] 07/23/2020 06:33:[address] [facility] Value Range Interpretation Description Data Sup porting Code Source(s) Document(s ) Monocytes/100 10.8 % [place] leukocytes in [facility] Blood by Automated count ID Date Data Source [id number] 07/23/2020 [facility] Range Interpretation Description Data Sup porting Code Source(s) Document(s ) Lymphocytes/10 30.5 % [place] 0 leukocytes Hospital in Blood by Automated count ID Date Data Source [id number] 07/23/2020 06:33:00 AM EDT [facility] Name Value Range Interpretation Description Data Sup porting Code Source(s) Document(s ) Neutrophils/10 56.5 % [place] 0 leukocytes Hospital in Blood by Automated count ID Date Data Source [id number] 07/23/2020 06:33:00 AM EDT [facility] Value Range Interpretation Description Data Sup porting Code Source(s) Document(s ) Platelet mean 11.2 fL [place] volume Hospital [Entitic volume] in Blood by Automated count ID Date Data Source [id number] 07/23/2020 06:33:00 AM EDT [facility] Value Range Interpretation Description Data Sup porting Code Source(s) Document(s ) Platelets 257 [place] [#/volume] in 10*3/uL Hospital Blood by Automated count ID Date Data Source [id number] 07/23/2020 06:33:00 AM EDT [facility] Value Range Interpretation Description Data Sup porting Code Source(s) Document(s ) Erythrocyte 12.1 % [place] distribution Hospital width [Ratio] by Automated count ID Date Data Source [id number] 07/23/2020 06:33:00 AM EDT [facility] Value Range Interpretation Description Data Sup porting Code Source(s) Document(s ) Erythrocyte mean 32.5 [place] corpuscular g/dL Hospital hemoglobin concentration [Mass/volume] by Automated count ID Date Data Source [id number] 07/23/2020 06:33:00 AM EDT [facility] Value Range Interpretation Description Data Sup porting Code Source(s) Document(s ) Erythrocyte 31.3 pg [place] mean Hospital corpuscular hemoglobin [Entitic mass] by Automated count ID Date Data Source [id number] 07/23/2020 06:33:00 AM EDT [facility] Name Value Range Interpretation Description Data Sup porting Code Source(s) Document(s ) Erythrocyte 96.3 fL [place] mean Hospital corpuscular volume [Entitic volume] by Automated count ID Date Data Source [id number] 07/23/2020 06:33:00 AM EDT [facility] Value Range Interpretation Description Data Sup porting Code Source(s) Document(s ) Hematocrit 41.9 % [place] [Volume Hospital Fraction] of Blood by Automated count ID Date Data Source [id number] 07/23/2020 06:33:00 AM EDT [facility] Value Range Interpretation Description Data Sup porting Code Source(s) Document(s ) Hemoglobin 13.6 g/dL [place] [Mass/volume] Hospital in Blood ID Date Data Source [id number] 07/23/2020 06:33:00 AM EDT [facility] Value Range Interpretation Description Data Sup porting Code Source(s) Document(s ) Erythrocytes 4.35 [place] [#/volume] in 10*6/uL Hospital Blood by Automated count ID Date Data Source [id number] 07/23/2020 06:33:00 AM EDT [facility] Value Range Interpretation Description Data Sup porting Code Source(s) Document(s ) Leukocytes 7.7 [place] [#/volume] in 10*3/uL Hospital Blood by Automated count ID Date Data Source [id number] 07/23/2020 02:21:00 AM EDT [facility] Value Range Interpretation Description Data Sup porting Code Source(s) Document(s ) Lactate 0.5 [place] [Moles/volum mmol/L Hospital e] in Serum or Plasma ID Date Data Source [id number] 07/22/2020 10:16:00 PM EDT [facility] CUT-OFF >= 25 NG/ML.THE FINDINGS OF THE [...] rce(s) Supporting Document(s ) PCP (UR) NEGATIVE [facility] ID Date Data Source [id number] 07/22/2020 10:16:00 PM EDT [facility] CUT-OFF >= 50 NG/ML. Name Value Range Interpretation Code Description Data Carmela rce(s) Supporting Document(s ) THC (UR) POSITIVE [facility] ID Date Data Source [id number] 07/22/2020 10:16:00 PM EDT [facility] CUT-OFF >= 300 NG/ML. Name Value Range Interpretation Description Data Sup porting Code Source(s) Document(s ) OPIATES (UR) NEGATIVE [facility] ID Date Data Source [id number] 07/22/2020 10:16:00 PM EDT [facility] CUT-OFF >= 300 NG/ML. Name Value Range Interpretation Description Data Sup porting Code Source(s) Document(s ) COCAINE (UR) POSITIVE [facility] ID Date Data Source [id number] 07/22/2020 10:16:00 PM EDT [facility] CUT-OFF >= 200 NG/ML. Name Value Range Interpretation Description Data Sup porting Code Source(s) Document(s ) BENZODIAZEPINES POSITIVE [place] (UR) [place] [facility] ID Date Data Source [id number] 07/22/2020 10:16:00 PM [facility] CUT-OFF >= 200 NG/ML. Name Value Range Interpretation Description Data Sup porting Code Source(s) Document(s ) BARBITURATES NEGATIVE [place] (UR) Hospital ID Date Data Source [id number] 07/22/2020 10:16:00 PM [facility] CUT-OFF >= 1000 NG/ML. Name Value Range Interpretation Description Data Sup porting Code Source(s) Document(s ) AMPHETAMINES NEGATIVE [place] (UR) Hospital ID Date Data Source [id number] 07/22/2020 10:16:00 PM [facility] Name Value Range Interpretation Description Data Sup porting Code Source(s) Document(s ) Erythrocytes 0-3 [place] [#/area] in /[HPF] Hospital Urine sediment by Automated count ID Date Data Source [id number] 07/22/2020 10:16:00 PM [facility] Name Value Range Interpretation Description Data Sup porting Code Source(s) Document(s ) Leukocytes 0-3 [place] [#/area] in /[HPF] Hospital Urine sediment by Automated count ID Date Data Source [id number] 07/22/2020 10:16:00 PM [facility] Name Value Range Interpretation Description Data Sup porting Code Source(s) Document(s ) Leukocyte NEGATIVE [place] esterase Hospital [Presence] in Urine by Test strip ID Date Data Source [id number] 07/22/2020 10:16:00 PM [facility] Name Value Range Interpretation Description Data Sup porting Code Source(s) Document(s ) URINE NEGATIVE [place] NITRITES Hospital ID Date Data Source [id number] 07/22/2020 10:16:00 PM [facility] Name Value Range Interpretation Description Data Sup porting Code Source(s) Document(s ) Erythrocytes NEGATIVE [place] [#/volume] in Hospital Urine by Test strip ID Date Data Source [id number] 07/22/2020 10:16:00 PM EDT [facility] Name Value Range Interpretation Code Description Data Carmela rce(s) Supporting Document(s ) Bilirubin. NEGATIVE [place] total Hospital [Presence] in Urine by Test strip ID Date Data Source [id number] 07/22/2020 10:16:00 PM EDT [facility] Name Value Range Interpretation Description Data Sup porting Code Source(s) Document(s ) Urobilinogen 1.0 [place] [Units/volume] mg/dL Hospital in Urine by Test strip ID Date Data Source [id number] 07/22/2020 10:16:00 PM EDT [facility] Name Value Range Interpretation Description Data Sup porting Code Source(s) Document(s ) Ketones NEGATIVE [place] [Mass/volume Hospital ] in Urine by Test strip ID Date Data Source [id number] 07/22/2020 10:16:00 PM EDT [facility] Name Value Range Interpretation Description Data Sup porting Code Source(s) Document(s ) Glucose NEGATIVE [place] [Mass/volume Hospital ] in Urine by Test strip ID Date Data Source [id number] 07/22/2020 10:16:00 PM EDT [facility] Name Value Range Interpretation Code Description Data Carmela rce(s) Supporting Document(s ) Protein 1+ [place] [Presence] Hospital in Urine by Test strip ID Date Data Source [id number] 07/22/2020 10:16:00 PM EDT [facility] Name Value Range Interpretation Code Description Data Carmela rce(s) Supporting Document(s ) pH of Urine 6.0 [place] by Test Hospital strip ID Date Data Source [id number] 07/22/2020 10:16:00 PM [facility] Name Value Range Interpretation Code Description Data Supporting Source(s) Document(s ) Specific 1.017 [place] gravity of Hospital Urine by Test strip ID Date Data Source [id number] 07/22/2020 10:16:00 PM [facility] Name Value Range Interpretation Description Data Sup porting Code Source(s) Document(s ) Clarity in Urine CLEAR [place] by Refractometry Hospital automated ID Date Data Source [id number] 07/22/2020 10:16:00 PM [facility] Name Value Range Interpretation Code Description Data Carmela rce(s) Supporting Document(s ) Color of YELLOW [place] Urine Hospital ID Date Data Source [id number] 07/22/2020 07:55:00 PM [facility] Name Value Range Interpretation Description Data Sup porting Code Source(s) Document(s ) Thyrotropin 1.083 [place] [Units/volume] u[IU]/mL Hospital in Serum or Plasma by Detection limit <= 0.005 mIU/L ID Date Data Source [id number] 07/22/2020 07:55:00 PM [facility] Name Value Range Interpretation Description Data Sup porting Code Source(s) Document(s ) OSMOLALITY 288 [place] (SERUM) mosm/kg Hospital ID Date Data Source [id number] 07/22/2020 07:15:00 PM [facility] REFERENCE RANGES: NONE DETECTED <20 MG/DL NONE TO MILD EUPHORIA 20-49 MG/DL MILD EUPHORIA 50-99 MG/DL MODERATE EUPHORIA 100-149 MG/DL INTOXICATION 150-300 MG/DL Name Value Range Interpretation Description Data Sup porting Code Source(s) Document(s ) Ethanol < 20 [place] [Mass/volume mg/dL Hospital ] in Serum or Plasma ID Date Data Source [id number] 07/22/2020 07:15:00 PM [facility] TEST RESULT IS A TOTAL TRICYCLIC [...] Code Source(s) Document(s ) TRICYCLIC < 80 [place] ANTIDEPRESSANT ng/mL Hospital ID Date Data Source [id number] 07/22/2020 07:15:00 PM [facility] REFERENCE RANGES: ANALGESIC: 0.0 - 10.0 MG/DL. ARTHRITIC THERAPY: 15.0 - 30.0 MG/DL. Name Value Range Interpretation Description Data Sup porting Code Source(s) Document(s ) Salicylates < 3.0 [place] [Mass/volume] mg/dL Hospital in Serum or Plasma ID Date Data Source [id number] 07/22/2020 07:15:00 PM [facility] THERAPEUTIC RANGE: 10.0-30.0 UG/MLTOXIC RANGE: 4 HRS AFTER INGESTION >150 UG/ML 12 HRS AFTER INGESTION >35 UG/ML Name Value Range Interpretation Description Data Sup porting Code Source(s) Document(s ) ACETAMINOPHEN < 10.0 [place] ug/mL Hospital ID Date Data Source [id number] 07/22/2020 07:15:00 PM [facility] TEST PERFORMED BY [employer] [employer]ENSIT[employer] [facility] CHEMILUMINESCENCE METHOD. Name Value Range Interpretation Description Data Sup porting Code Source(s) Document(s ) Troponin < 0.01 [place] I.cardiac ng/mL Hospital [Mass/volume ] in Serum or Plasma ID Date Data Source [id number] 07/22/2020 07:15:00 PM EDT [facility] Name Value Range Interpretation Code Description Data Carmela rce(s) Supporting Document(s ) Lipase 22 U/L [place] [Enzymatic Hospital activity/vo lume] in Serum or Plasma ID Date Data Source [id number] 07/22/2020 07:15:00 PM EDT [facility] THERAPEUTIC RANGES:UNFRACTIONATED HEPARI N THERAPY: 60-90 SECONDSARGATROBAN THERAPY: 49-99 SECONDS Name Value Range Interpretation Description Data Sup porting Code Source(s) Document(s ) aPTT in 26.5 s [place] Platelet poor [facility] plasma by Coagulation assay ID Date Data Source [id number] 07/22/2020 07:15:00 PM EDT [facility] THERAPEUTIC RANGE FOR STANDARD ORALANTIC OAGULANT THERAPY: 2.0-3.0THERAPEUTIC RANGE FOR HIGH DOSE ORALANTICOAGULANT THERAPY (MECHANICAL HEARTVALVE REPLACEMENT): 2.5-3.5 Name Value Range Interpretation Description Data Sup porting Code Source(s) Document(s ) INR in Platelet 1.0 [place] poor plasma by Hospital Coagulation assay ID Date Data Source [id number] 07/22/2020 07:15:00 PM EDT [facility] Name Value Range Interpretation Description Data Sup porting Code Source(s) Document(s ) PT panel - 11.3 s [place] Platelet poor [facility] plasma by Coagulation assay Procedure Social History Code Duration Value Status Description Data Source(s ) Smoking 07/23/2020 Smokes tobacco completed Smokes tobacco [place] 01:00:00 AM EDT daily (finding) daily (finding) Hospital Vital Signs ID Date Data Source UNK Name Value Range Interpretation Code Description Data Source(s) Diastolic blood 72 mm[Hg] 72 mm[Hg] [facility] Systolic blood 115 mm[Hg] 115 mm[Hg] [facility] Respiratory rate 17 /min 17 /[facility] Heart rate 54 /min 54 /min [facility] Body temperature 36.86840 36.19135 [facility] Body temperature 97.9 [degF] 97.9 [degF] [facility] Body mass index 22.0 kg/m2 22.0 kg/m2 [facility] ins (BMI) [Ratio] Hospital Body weight 140.30 140.30 [lb_av] [facility] ins [lb_av] Hospital
[2020-08-26] MEDS ORDERED: MAG HYDROX/AL HYDROX/SIMETH 30 ML UNIT-DOSE CUP PO PRN (12:00)
[2020-08-26] MEDS ORDERED: ACETAMINOPHEN 325 MG TABLET (FP) PO PRN (12:00)
[2020-08-26] MEDS ORDERED: MAGNESIUM HYDROX 2400MG/30ML ORAL SUSPENSION 30 ML CUP PO PRN (12:00)
[2020-08-26] MEDS ORDERED: MAGNESIUM CITRATE 300 ML BOTTLE PO PRN (12:00)
[2020-08-26] MEDS ORDERED: LOPERAMIDE HCL 2 MG CAPSULE PO PRN (12:00)
[2020-08-26] MEDS ORDERED: MENTHOL/PHENOL 1 EACH UD MM PRN (12:00)
[2020-08-26] MEDS ORDERED: IBUPROFEN 400 MG TABLET (FP) PO PRN (12:00)
[2020-08-26] MEDS ORDERED: P-EPHED 60MG/TRIPROLIDI 2.5MG TABLET PO PRN (12:00)
[2020-08-26] MEDS ORDERED: guaiFENesin 200 MG/10 ML 10 ML UNIT-DOSE CUPS PO PRN (12:00)
--- NOTE | 2020-08-26 12:05 | HP ---
[facility] Rehab Assess/Revision - Vital signs Vital Signs: Vital Signs Period Temp Pulse Resp BP Sys/[place] Pulse Ox Last 24 Hr 97.5 F 71 18 139/68 - Findings Detox History & Physical reviewed: Yes Concur with findings: Yes Inpatient Rehab Admission - Rehab Decision to Admit Inpatient rehab admission?: Yes - Initial Determination Are CD services needed?: Yes Free of communicable disease: Yes Not in need of hospitalization: Yes - Rehab Admission Criteria Previous failed treatment: Yes Poor recovery environment: Yes Comorbidities: Yes Lacks judgement: No Patient is meeting Inpatient Rehab admission criteria:: Yes
[2020-08-26] MEDS: NICOTINE POLACRILEX 2 MG GUM BUC PRN (19:13)
[2020-08-26] MEDS: MELATONIN 5 MG TABLETS PO SCH (21:37)
[2020-08-26] MEDS: THIAMINE HCL 100 MG TABLET (FP) PO SCH (21:37)
[2020-08-26] MEDS: DIVALPROEX SODIUM 500 MG TABLET E.C. PO SCH (21:38)
[2020-08-26] MEDS: ARIPiprazole 5 MG TABLET PO SCH (21:38)
[2020-08-27] MEDS: hydrOXYzine PAMOATE 25 MG CAPSULE (FP) PO PRN (10:00)
[2020-08-27] MEDS: PRENATAL VITAMINS W/ FOLIC ACID TABLET (FP) PO SCH (10:00)
[2020-08-27] MEDS: DIVALPROEX SODIUM 500 MG TABLET E.C. PO SCH (10:00)
[2020-08-27] MEDS: NICOTINE POLACRILEX 2 MG GUM BUC PRN ×2 (10:01→21:16)
[2020-08-27] MEDS: NICOTINE 7 MG/24 HOURS TOPICAL PATCH TD SCH (10:16)
[2020-08-27] MEDS: ARIPiprazole 5 MG TABLET PO SCH (21:14)
[2020-08-27] MEDS: THIAMINE HCL 100 MG TABLET (FP) PO SCH (21:14)
[2020-08-27] MEDS: MELATONIN 5 MG TABLETS PO SCH (21:14)
[2020-08-28 07:19] VITALS: BP 126/72; PULSE 67; TEMP 97.5
[2020-08-28] MEDS: DIVALPROEX SODIUM 500 MG TABLET E.C. PO SCH (09:41)
[2020-08-28] MEDS: NICOTINE POLACRILEX 2 MG GUM BUC PRN (09:41)
[2020-08-28] MEDS: NICOTINE 7 MG/24 HOURS TOPICAL PATCH TD SCH (09:41)
[2020-08-28] MEDS: hydrOXYzine PAMOATE 25 MG CAPSULE (FP) PO PRN (09:41)
[2020-08-28] MEDS: PRENATAL VITAMINS W/ FOLIC ACID TABLET (FP) PO SCH (09:41)
--- NOTE | 2020-08-28 12:20 | PN ---
[facility] Progress Note Note: Psychiatric nurse practitioner note: Patient leaving rehab today due to a scheduled court date. A 30 day prescription of Abilify 5mg HS + Depakote 500mg was electronically sent to [facility] Pharmacy, [address] [place], [place] [address].
--- NOTE | 2020-08-28 12:26 | PN ---
[facility] Progress Note Note: patient would like to be discharged,stated he has to leave to go home,has court appointment in [place] at 9.30 am , has a safe place to stay at his mother's home,seen by counselor,follow up with after care program as arrangement by counselor, left the unit in stable condition
--- NOTE | 2020-08-28 12:26 | DS ---
[facility] Rehab Discharge Summary - [facility] Rehab Discharge Summary Admission Date: 08/26/20 Discharge Date: 08/28/20 - History Present History: Alcohol dependence, Cocaine dependence Additional Comments: alert,oriented x 3 lung clear on auscultation bilaterally abdomen soft,no pain no edema of legs stable for discharge today follow up with after care program as arrangement by counselor medications e prescription by [facility] Psychiatrist to patient's pharmacy Pertinent Past History: history of depression history of ptsd nicotine dependence - Discharge Physical Exam Vital Signs: Vital Signs Temperature 97.5 F L 08/28/20 09:33 Pulse Rate 67 08/28/20 06:30 Respiratory Rate 18 08/28/20 06:30 Blood Pressure 126/72 08/28/20 06:30 O2 Sat by Pulse Oximetry (%) 98 08/28/20 09:33 Pertinent Admission Physical Exam Findings: essentially normal on admission t97.5,p71,r18,bp 139/68,pulse ox 97% - Treatment Discharge Condition: Discharge condition good, Rehabilitated safely, Responded well, Outpatient referral accepted Hospital Course: patient felt much better,has court appearance on 08/29/20 at 09.30 in [place], follow up with out patient Program at [facility] as appointment to call tomorrow - Medication Discharge Medications: Ambulatory Orders Divalproex [Depakote -] 750 mg PO BID 08/22/20 Aripiprazole [Abilify] 5 mg PO HS 08/26/20 Aripiprazole [Abilify -] 5 mg PO HS #30 tablet 08/28/20 Divalproex [Depakote -] 500 mg PO HS #30 tablet.ec 08/28/20 - Medication-Assisted Treatment (MAT) Medication-Assisted Treatment (MAT): No - Discharge Instructions Diet, activity, other medical instructions: Diet: regular diet Activity: as tolerated Other medical instructions: - Diagnosis (1) Alcohol dependence Status: Acute (2) Cocaine dependence, uncomplicated Status: Chronic (3) History of depression Status: Chronic (4) History of seizures Status: Chronic (5) Nicotine dependence Status: Chronic (6) History of posttraumatic stress disorder (PTSD) Status: Acute - Follow-up Referral Minutes to complete discharge: 40 - AMA Did Patient Leave Against Medical Advice: No
== END 2020-08-28 13:30 | disposition home or self-care (01) | DRG 772 ==
LOC: YASAS 11:06 → Y3W 11:07
PROVIDERS: ADMIT Allergy & Immunology; ATTEND Allergy & Immunology
PROC: HZ42ZZZ Group Counseling for Substance Abuse Treatment, Cognitive-Behavioral (ICD-10-PCS; principal; 2020-08-26)
DX: F10.20 Alcohol dependence, uncomplicated (principal); F14.20 Cocaine dependence, uncomplicated; F17.210 Nicotine dependence, cigarettes, uncomplicated; F43.10 Post-traumatic stress disorder, unspecified; Z86.59 Personal history of other mental and behavioral disorders; Z86.69 Personal history of other diseases of the nervous system and sense organs; Z59.0 Homelessness

== ENCOUNTER 2020-09-12 09:41 | Inpatient (IN) | payer OTHER ==
[2020-09-12 13:49] VITALS: BMI 24.3
[2020-09-12] MEDS ORDERED: MAGNESIUM CITRATE 300 ML BOTTLE PO PRN (14:05)
[2020-09-12] MEDS ORDERED: MAGNESIUM HYDROX 2400MG/30ML ORAL SUSPENSION 30 ML CUP PO PRN (14:05)
[2020-09-12] MEDS ORDERED: guaiFENesin 200 MG/10 ML 10 ML UNIT-DOSE CUPS PO PRN (14:05)
[2020-09-12] MEDS ORDERED: IBUPROFEN 400 MG TABLET (FP) PO PRN (14:05)
[2020-09-12] MEDS ORDERED: NICOTINE POLACRILEX 2 MG GUM BC PRN (14:05)
[2020-09-12] MEDS ORDERED: LOPERAMIDE HCL 2 MG CAPSULE PO PRN (14:05)
[2020-09-12] MEDS ORDERED: P-EPHED 60MG/TRIPROLIDI 2.5MG TABLET PO PRN (14:05)
[2020-09-12] MEDS ORDERED: ACETAMINOPHEN 325 MG TABLET (FP) PO PRN (14:05)
[2020-09-12] MEDS ORDERED: MAG HYDROX/AL HYDROX/SIMETH 30 ML UNIT-DOSE CUP PO PRN (14:05)
[2020-09-12] MEDS: PRENATAL VITAMINS W/ FOLIC ACID TABLET (FP) PO SCH (15:00)
[2020-09-12] MEDS: NICOTINE 21 MG/24 HOURS TOPICAL PATCH TD SCH (15:00)
[2020-09-12 16:55] LABS: HEMATOCRIT 47.3 % (35.4-49); HEMOGLOBIN 15.6 GM/dL (11.7-16.9); MCH 32.1 pg (25.7-33.7); MEAN CELL VOLUME 97.5 fl (80-96); MEAN PLT VOLUME 10.2 fl (7.5-11.1); PLATELET COUNT 340 K/MM3 (134-434); RBC 4.85 M/mm3 (4.00-5.60); RDW 13.3 % (11.9-15.9); WHITE BLOOD COUNT 4.6 K/mm3 (4.0-10.0)
[2020-09-12 17:00] LABS: POTASSIUM 4.2 mmol/L (3.5-5.1)
[2020-09-12 17:03] LABS: ALBUMIN 4.3 g/dl (3.4-5.0); BLOOD UREA NITROGEN 15.2 mg/dL (7-18); CALCIUM 9.6 mg/dL (8.5-10.1)
[2020-09-12 17:07] LABS: CREATININE 0.9 mg/dL (0.55-1.3)
[2020-09-12 17:08] LABS: BILIRUBIN,TOTAL 0.9 mg/dL (0.2-1); TOT PROT 8.6 g/dl (6.4-8.2)
[2020-09-12] MEDS: hydrOXYzine PAMOATE 25 MG CAPSULE (FP) PO SCH ×2 (17:36→21:46)
[2020-09-12 17:58] LABS: HIV INTERPRETATION NEGATIVE (NEGATIVE)
[2020-09-12] MEDS: DIVALPROEX SODIUM 250 MG TABLET E.C. PO SCH (21:45)
[2020-09-12] MEDS: MELATONIN 5 MG TABLETS PO SCH (21:46)
[2020-09-12] MEDS: THIAMINE HCL 100 MG TABLET (FP) PO SCH (21:46)
[2020-09-13] MEDS: hydrOXYzine PAMOATE 25 MG CAPSULE (FP) PO SCH ×5 (06:26→21:08)
[2020-09-13] MEDS: PRENATAL VITAMINS W/ FOLIC ACID TABLET (FP) PO SCH (10:12)
[2020-09-13] MEDS: DIVALPROEX SODIUM 250 MG TABLET E.C. PO SCH ×2 (10:12→21:08)
[2020-09-13] MEDS: NICOTINE 21 MG/24 HOURS TOPICAL PATCH TD SCH (10:12)
[2020-09-13] MEDS: THIAMINE HCL 100 MG TABLET (FP) PO SCH (21:08)
[2020-09-13] MEDS: MELATONIN 5 MG TABLETS PO SCH (21:09)
[2020-09-13] MEDS ORDERED: ARIPiprazole 5 MG TABLET PO SCH (22:00)
[2020-09-14] MEDS: hydrOXYzine PAMOATE 25 MG CAPSULE (FP) PO SCH ×3 (06:23→14:30)
[2020-09-14 07:07] VITALS: BP 132/85; PULSE 72; TEMP 97.7
[2020-09-14] MEDS: DIVALPROEX SODIUM 250 MG TABLET E.C. PO SCH (10:24)
[2020-09-14] MEDS: PRENATAL VITAMINS W/ FOLIC ACID TABLET (FP) PO SCH (10:24)
[2020-09-14] MEDS: NICOTINE 21 MG/24 HOURS TOPICAL PATCH TD SCH (10:24)
[2020-09-14] MEDS ORDERED: FLU VACCINE (FLULAVAL) PF 60 MCG/0.5 ML SYRINGE 2020-2021 IM ONE (12:00)
== END 2020-09-14 15:23 | disposition home or self-care (01) | DRG 772 ==
LOC: YASAS 09:41 → Y5N 13:31
PROVIDERS: ADMIT Allergy & Immunology; ATTEND Allergy & Immunology
PROC: HZ42ZZZ Group Counseling for Substance Abuse Treatment, Cognitive-Behavioral (ICD-10-PCS; principal; 2020-09-12)
DX: F10.20 Alcohol dependence, uncomplicated (principal); F11.10 Opioid abuse, uncomplicated; F14.20 Cocaine dependence, uncomplicated; F13.20 Sedative, hypnotic or anxiolytic dependence, uncomplicated; F12.20 Cannabis dependence, uncomplicated; F17.210 Nicotine dependence, cigarettes, uncomplicated; F31.9 Bipolar disorder, unspecified; F41.9 Anxiety disorder, unspecified; G40.909 Epilepsy, unspecified, not intractable, without status epilepticus; D64.9 Anemia, unspecified; Z86.74 Personal history of sudden cardiac arrest; Z91.5 Personal history of self-harm; Z59.0 Homelessness; Z56.0 Unemployment, unspecified
CPT/HCPCS: 36415; 80053; 80164; 85027; 86780; 87389; C9803; U0003